=== PATIENT | male | born 1950 | race Caucasian/White ===

== ENCOUNTER → 2021-09-21 | Outpatient (REF) | payer OTHER, MEDICARE, BC | LOC: M LAB REF 17:02 | PROVIDERS: ATTEND Ophthalmology | DX: D23.111 Other benign neoplasm of skin of right upper eyelid, including canthus (principal) ==

== ENCOUNTER → 2021-10-12 | Outpatient (REF) | payer MEDICARE, BC | LOC: M SMT 12:56 | PROVIDERS: ATTEND Urology | DX: N40.2 Nodular prostate without lower urinary tract symptoms (principal) ==